=== PATIENT | male | born 2000 | race Caucasian/White ===

== ENCOUNTER 2022-03-03 23:12 | Emergency (ER) | payer BC ==
[~2022-03-03] VITALS: Ht 193 cm; Wt 106.8 kg
[2022-03-04 00:21] LABS: ALANINE AMINOTRANSFERASE 12 U/L (0-55); ALBUMIN 4.3 gm/dL (3.5-5.0); ALKALINE PHOSPHATASE 96 U/L (40-150); ANION GAP 11 mmol/L (7-16); AST,SGOT 16 U/L (5-34); BILIRUBIN,TOTAL 0.4 mg/dL (0.2-1.2); BLOOD UREA NITROGEN 20 mg/dL (9-21); CALCIUM 9.3 mg/dL (8.4-10.2); CARBON DIOXIDE 19 mmol/L (22-29); CHLORIDE 109 mmol/L (98-107); CREATININE, serum 1.45 mg/dL (0.72-1.25); GLUCOSE 84 mg/dL (70-99); POTASSIUM 3.9 mmol/L (3.5-4.5); SODIUM 139 mmol/L (136-145); TOTAL PROTEIN 6.7 gm/dL (6.2-8.1)
[2022-03-04 00:26] LABS: TROPONIN-I < 0.010 ng/mL (0.00-0.033)
[2022-03-04 00:31] LABS: BASO % 0.6 % (0.0-2.0); EOS # 0.3 K/mm3 (0.0-0.7); EOS % 4.9 % (0.0-4.0); GRAN # 3.9 K/mm3 (1.4-6.5); GRAN % 59.7 % (42.2-75.2); HEMATOCRIT 38.8 % (42.0-52.0); HEMOGLOBIN 13.7 g/dl (13.5-18.0); LYMPH # 1.7 K/mm3 (1.2-3.4); LYMPH % 26.6 % (20.0-51.0); MEAN CELL VOLUME 86 fl (80.0-100.0); MEAN CORPUSCULAR HEMOGLOBIN 30 pg (27-31); MEAN CORPUSCULAR HGB CONC 35 g/dl (33.0-37.0); MEAN PLATELET VOLUME 9.8 fl (7.4-10.4); MONO # 0.5 K/mm3 (0.1-0.6); MONO % 7.7 % (1.7-9.3); PLATELET COUNT 186 K/mm3 (130-400); RED BLOOD COUNT 4.52 M/mm3 (4.20-5.60); REDCELL DISTRIBUTION WIDTH-CV 12.2 % (11.5-14.5)
[2022-03-04 01:36] VITALS: BP 113/65; PULSE 75; TEMP 98.2
== END 2022-03-04 01:36 | disposition home or self-care (01) ==
LOC: COL.ER 23:12
PROVIDERS: Nurse Practitioner Primary Care
DX: R20.2 Paresthesia of skin (principal); R53.81 Other malaise; M79.602 Pain in left arm; M79.601 Pain in right arm; M79.662 Pain in left lower leg; M79.661 Pain in right lower leg; Z28.310 Unvaccinated for COVID-19
CPT/HCPCS: J1200

== ENCOUNTER 2022-07-27 23:02 | Emergency (ER) | payer BC ==
[~2022-07-27] VITALS: Ht 193 cm; Wt 113.6 kg
[2022-07-28 01:41] VITALS: BP 121/87; PULSE 86; TEMP 98.7
== END 2022-07-28 01:46 | disposition home or self-care (01) ==
LOC: COL.ER 23:02
DX: S09.92XA Unspecified injury of nose, initial encounter (principal); I95.9 Hypotension, unspecified; W50.0XXA Accidental hit or strike by another person, initial encounter; Y92.099 Unspecified place in other non-institutional residence as the place of occurrence of the external cause
CPT/HCPCS: J7030